=== PATIENT | female | born 1965 | race Caucasian/White ===

== ENCOUNTER → 2024-04-04 11:07 | Outpatient (REF) | payer OTHER, SELFPAY ==
[2024-04-04 13:46] LABS: Rubella Positive
[2024-04-04 14:11] LABS: Hepatitis B Surface Antibody Positive
[2024-04-06 11:26] LABS: Quantiferon Mitogen minus NIL 9.95 IU/mL; Quantiferon NIL 0.05 IU/mL; Quantiferon TB Gold Plus Negative (Negative)
[2024-04-06 16:49] LABS: Mumps Virus IgG Positive; Rubeola (Measles) IgG Positive; Varicella Zoster IgG (VZV) Positive
== END ==
LOC: REG 11:07
PROVIDERS: ATTENDING PHYSICIAN Nurse Practitioner Family
DX: Z23 Encounter for immunization (principal)
CPT/HCPCS: 36415; 86480; 86706; 86735; 86762; 86765; 86787